=== PATIENT | male | born 1950 | race Caucasian/White ===

== ENCOUNTER 2016-08-08 18:52 | Emergency (ER) | payer OTHER ==
[2016-08-08 19:08] VITALS: TEMP 98.4
--- NOTE | 2016-08-08 19:23 | CPEKG ---
Heart Rate: 77 RR Interval: 779 P-R Interval: 188 QRSD Interval: 86 QT Interval: 384 QTC Interval: 435 P [place]: 82 QRS [place]: 79 T Wave [place]: 59 EKG Severity - NORMAL ECG - EKG Impression: SINUS RHYTHM Electronically Signed By: Estefani Andrade 09-Aug-2016 09:35:16
--- NOTE | 2016-08-08 19:29 | EDPHY ---
H & P Stated Complaint: Fainted earlier today HPI/ROS: CHIEF COMPLAINT: Syncope. HISTORY OF PRESENT ILLNESS: The patient is a 66-year-old male with a history of multiple syncopal episodes who presents after a syncopal episode just after lunch today. He was out shopping, ran a short distance, then suddenly felt short of breath and flushed and had a 20 second syncopal episode, striking the back of his head on a bike rack. He felt fine after waking up and had no complaints the rest of the day besides head pain. He denies numbness, weakness, speech difficulty, dizziness, confusion, or other complaints. He is currently receiving radiation for a prostate cancer and reports that he has more severe and longer-lasting episodes of hot flashes than before. His father at 59 of diabetes complications but he otherwise has no relevant family history. REVIEW OF SYSTEMS: A ten point review of systems was performed and is negative with the exception of the items mentioned in the HPI. Source: Patient Exam Limitations: No limitations - Personal History Current Tetanus/Diphtheria Vaccine: Yes Current Tetanus Diphtheria and Acellular Pertussis (TDAP): Yes - Medical/Surgical History Hx Asthma: No Hx Chronic Respiratory Disease: No Hx Diabetes: No Hx Cardiac Disease: No Hx Renal Disease: No Hx Cirrhosis: No Hx Alcoholism: No Hx HIV/AIDS: No Hx Splenectomy or Spleen Trauma: No Other PMH: Prostate cancer. 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 - Physical Exam Exam: General Appearance: Alert. Vital signs reviewed. BP 142/80 at triage. Head: Scalp abrasion just superior to occiput. No swelling, no bony deformity. Eyes: Pupils equal and round, no conjunctival injection, no discharge. Anicteric. ENT, Mouth: Mucous membranes are moist, no oropharyngeal erythema or edema. No hemotympanum on the left. Right ear occluded by cerumen. No oral trauma. Neck: No lymphadenopathy, supple. Respiratory: Lungs are clear to auscultation; no wheezes, rales, or rhonchi. Cardiovascular: Regular rate and rhythm; no murmur, rub, or gallop. Gastrointestinal: Abdomen is soft and nontender, no masses or organomegaly, bowel sounds normal. Skin: Warm and dry, no rashes on exposed skin, normal color. Back: Nontender to palpation over the thoracolumbar spine. No CVAT. Extremities: No lower extremity edema, no calf tenderness or swelling. Neurological: Alert and oriented. Moving all four extremities easily and equally. Cranial nerves II through XII are examined and are intact (visual acuity not tested). Strength is 5 over 5 bilaterally with testing of all major motor groups. Sensation is intact to light touch over all 4 extremities. Deep tendon reflexes are 2+ in the biceps and knees bilaterally. [id number] is performed accurately. Psychiatric: Normal affect. Constitutional: Initial Vital Signs Temperature (C) 36.9 C 08/08/16 19:06 Heart Rate 78 08/08/16 19:06 Respiratory Rate 16 08/08/16 19:06 Blood Pressure 142/80 H 08/08/16 19:06 O2 Sat (%) 94 08/08/16 19:06 O2 Delivery Mode Room Air Allergies/Adverse Reactions: No Known Allergies Allergy (Unverified 08/08/16 19:06) Medical Decision Making - Diagnostics EKG Interpretation: The 12 lead EKG was interpreted by myself. See hard copy and/or "tracemaster" electronic copy for interpretation. Sinus rhythm rate 77. Imaging: Study: CTA of the chest. Indication: Elevated d-dimer. Results: 1. There is no CT evidence of pulmonary artery thromboemboli. 2. Mild posterior dependent subsegmental atelectasis. The study was read by the radiologist Dr. Rand. I viewed the images myself on the PACS system. ED Course/Re-evaluation: Brief syncopal episode with scalp abrasion, normal neuro exam, no headache ( pain at site of abrasion only). He is not on blood thinners. This syncopal episode occurred five hours ago. I do not think that head imaging is warranted. An IV was established and labs ordered. EKG obtained. D-dimer elevated at 1.15. 2051: Reassessed patient and discussed lab work. I recommended CTA of the chest because of elevated d-dimer in setting of syncope and the patient is comfortable with this plan. 2144: CTA results reported to me negative by Dr. Rand, radiology. Patient remains pain free, no chest pain, neuro exam normal. He is offered hospitalization for cardiac monitoring and evaluation but declines. He understands that the etiology of his syncopal episode has not been determined. He has had previous syncopal episodes in his life--at least three other episodes. I suspect vasovagal syncope. He does not appear dehydrated and has not had vomiting/diarrhea/blood in stools. No apparent cardiac arrhythmia during stay in ED. Differential Diagnosis: I considred a ddx of syncope that includes but is not limited to volume depletion (including blood loss), arrhythmia, PE, and vasovagal. - Data Points Laboratory Results: Laboratory Results 08/08/16 19:39 08/08/16 19:39 Departure - Departure Disposition: Home, Routine, Self-Care Clinical Impression: Syncope Qualifiers: Syncope type: unspecified Qualified Code(s): R55 - Syncope and collapse Condition: Good Instructions: Syncope (ED), Head Injury (ED) Additional Instructions: Follow up with your primary care provider next week for reevaluation if needed. Return to the emergency department for any serious worsening of condition. Referrals: KARLOS FISCHER [Primary Care Provider] - As per Instructions Report Scribed for: Estefani Andrade Report Scribed by: Bhupinder Reyes Date of Report: 08/08/16 Time of Report: 19:43 Physician Review and Approval Statement: 08/08/16 19:29 Portions of this note were transcribed by the certified medical records coder. I, Dr. Estefani Andrade, personally performed the history, physical exam, and medical decision- making; and confirmed the accuracy of the information in the transcribed note.
[2016-08-08 19:46] LABS: % IMMATURE GRANULYOCYTES 0.2 % (0.0-1.1); ABSOLUTE IMMATURE GRANULOCYTES 0.01 10^3/uL (0.00-0.10); ADD DIFF? NO; ADD MORPH? NO; ADD SCAN? NO; ATYPICAL LYMPHOCYTE FLAG 0 (0-99); FRAGMENT RBC FLAG 0 (0-99); HEMATOCRIT 33.4 % (40.0-51.0); LEFT SHIFT FLG 0 (0-99); LIPEMIA HEMOLYSIS FLAG 90 (0-99); MEAN CELL HEMOGLOBIN 32.3 pg (27.9-34.1); MEAN CELL HEMOGLOBIN CONCENTR. 35.9 g/dL (32.4-36.7); MEAN PLATELET VOLUME 10.3 fL (8.7-11.7); PLATELET CLUMPS FLAG 0 (0-99); PLATELET COUNT 114 10^3/uL (150-400); RED BLOOD CELL COUNT 3.71 10^6/uL (4.40-6.38); RED CELL DISTRIBUTION WIDTH 13.2 % (11.5-15.2)
[2016-08-08 20:21] LABS: ANION GAP 9 mEq/L (8-16); CALCIUM 11.2 mg/dL (8.5-10.4); CARBON DIOXIDE 21 mEq/l (22-31); CHLORIDE 106 mEq/L (97-110); CREATININE 1.3 mg/dL (0.7-1.3); GLOMERULAR FILTRATION RATE 55; GLUCOSE 99 mg/dL (70-100); POTASSIUM 4.5 mEq/L (3.5-5.2); SODIUM 136 mEq/L (134-144)
[2016-08-08 20:32] LABS: TROPONIN I 0.021 ng/mL (0-0.034)
[2016-08-08] MEDS ORDERED: IOPAMIDOL (ISOVUE-300) 100 ML BTL IV ONE (20:58)
[2016-08-08 22:37] VITALS: BP 125/74; PULSE 78; RESP 16; O2SAT 95
== END 2016-08-08 22:38 | disposition home or self-care (01) ==
DX: R55 Syncope and collapse (principal); Z85.46 Personal history of malignant neoplasm of prostate
CPT/HCPCS: 71275; 93005; 99285; Q9967

== ENCOUNTER → 2016-09-01 | Outpatient (CLI) | payer OTHER | LOC: BHFA 08:30 | PROVIDERS: ATTEND Internal Medicine Interventional Cardiology | DX: R55 Syncope and collapse (principal) ==

== ENCOUNTER 2018-01-20 11:13 | Emergency (ER) | payer OTHER ==
--- NOTE | 2018-01-20 13:01 | EDPHY ---
H & P Time Seen by Provider: 01/20/18 12:15 HPI/ROS: CHIEF COMPLAINT: Hemorrhoids HISTORY OF PRESENT ILLNESS: 67-year-old male presents to the emergency department with rectal pain and hemorrhoids. He went to urgent care today was sent into the emergency department for evaluation. He has not had hemorrhoids since he was much younger. He had recent vein stripping procedure on his legs although he does not report that any of this extended up into the rectum. He had scheduled follow-up appointment with his surgeon but decided to come to the emergency department for evaluation. ROS: No fevers or chills. Denies abdominal pain. Denies any blood loss. Past Medical/Surgical History: Prostate cancer treated with radiation Social History: Smoking Status: Never smoked Physical Exam: On examination the patient had evidence of external thrombosed hemorrhoid. Very tender to palpate. There is no surrounding redness or signs of infection. Not actively bleeding. Exam was performed with nurse, Myron, at bedside. Constitutional: Initial Vital Signs Temperature (C) 36.4 C 01/20/18 11:23 Heart Rate 76 01/20/18 11:23 Respiratory Rate 18 01/20/18 11:23 Blood Pressure 125/75 H 01/20/18 11:23 O2 Sat (%) 98 01/20/18 11:23 O2 Delivery Mode Room Air Allergies/Adverse Reactions: Penicillins Allergy (Verified 01/20/18 11:22) Home Medications: Medication Instructions Recorded Allopurinol 01/20/18 Levothyroxine 01/20/18 Oxycodone HCl 01/20/18 Tamsulosin HCl [Flomax] 0.4 mg PO DAILY #10 cap 01/20/18 MDM/Departure - [facility] Procedures: Procedure: Thrombosed hemorrhoid The patient's thrombosed hemorrhoid was noted I rectal opening. Risks, benefits , alternatives discussed with the patient and consent obtained. The thrombosed hemorrhoid was incised with a #11 blade and clotted blood was expressed. The patient tolerated the procedure well. The procedure was performed by myself. ED Course/Re-evaluation: I spoke with the patient's general surgeon, Dr. Shaji Loco, who agreed with incision and drainage of the thrombosed hemorrhoids. The patient tolerated this quite well, see procedure note. Dr. Loco did not recommend antibiotics. I did encourage the patient to continue Sitz baths and to follow up with Dr. Loco if symptoms do not improve over the next 48 hr or return sooner if he feels worse in any way. - Depart Disposition: Home, Routine, Self-Care Clinical Impression: External thrombosed hemorrhoids Condition: Good Instructions: Hemorrhoids (ED), Thrombosed Hemorrhoid (ED) Additional Instructions: Soak in warm bath 15-20 minutes at every 2-3 hours especially today and tomorrow. Apply bacitracin ointment as discussed after each soaking. Ibuprofen 600 mg every 8 hr as needed for pain. Stool softener such as Dulcolax, [id number]. Your Flomax has been refilled per your request. Return to the emergency department if you developed increased pain, fever, purulent drainage, or if you feel worse in any way. Prescriptions: Tamsulosin HCl [Flomax] 0.4 mg PO DAILY #10 cap Referrals: KARLOS FISCHER [Primary Care Provider] - As per Instructions Shaji Loco MD [Medical Doctor] - 2-3 days, if not improved
[2018-01-20 13:22] VITALS: BP 107/76
== END 2018-01-20 13:20 | disposition home or self-care (01) ==
PROC: 069Y0ZZ Drainage of Lower Vein, Open Approach (ICD-10-PCS; principal; 2018-01-20)
DX: K64.5 Perianal venous thrombosis (principal); Z92.3 Personal history of irradiation; Z85.46 Personal history of malignant neoplasm of prostate

== ENCOUNTER 2018-01-23 13:58 | Emergency (ER) | payer OTHER ==
--- NOTE | 2018-01-23 14:06 | EDPHY ---
H & P Time Seen by Provider: 01/23/18 14:06 HPI/ROS: CHIEF COMPLAINT: Urinary retention HISTORY OF PRESENT ILLNESS: The patient has a history of prostate cancer and is status post recent excision of a thrombosed external hemorrhoid. He presents to the ED today with urinary retention. The patient had been taking oxycodone at home. The patient had been given a refill of Flomax which he did not start taking. He has been struggling with pain management constipation since his hemorrhoid surgery. His prostate cancer was treated with radiotherapy. The patient denies any fever, flank pain, vomiting or chills. The patient reports he has been unable to urinate for the past several hours. REVIEW OF SYSTEMS: A comprehensive 10 point review of systems is otherwise negative aside from elements mentioned in the history of present illness. Source: Patient Exam Limitations: No limitations - Medical/Surgical History Hx Asthma: No Hx Chronic Respiratory Disease: No Hx Diabetes: No Hx Cardiac Disease: No Hx Renal Disease: No Hx Cirrhosis: No Hx Alcoholism: No Hx HIV/AIDS: No Hx Splenectomy or Spleen Trauma: No Other PMH: Prostate cancer./VEIN STRIPPING - Social History Smoking Status: Never smoked - Physical Exam Exam: General Appearance: Alert, no distress Eyes: Pupils equal and round no pallor or injection ENT, Mouth: Mucous membranes moist Respiratory: There are no retractions, lungs are clear to auscultation Cardiovascular: Regular rate and rhythm Gastrointestinal: Suprapubic tenderness to palpation Neurological: 5/5 strength all 4 extremities Skin: Warm and dry, no rashes Musculoskeletal: Neck is supple nontender Extremities: symmetrical, full range of motion Constitutional: Initial Vital Signs Temperature (C) 36.9 C 01/23/18 14:11 Heart Rate 69 01/23/18 14:11 Respiratory Rate 16 01/23/18 14:11 Blood Pressure 148/88 H 01/23/18 14:11 O2 Sat (%) 99 01/23/18 14:11 O2 Delivery Mode Room Air Allergies/Adverse Reactions: Penicillins Allergy (Verified 01/23/18 14:11) Home Medications: Medication Instructions Recorded Allopurinol 01/20/18 Levothyroxine 01/20/18 Oxycodone HCl 01/20/18 Tamsulosin HCl [Flomax] 0.4 mg PO DAILY #10 cap 01/20/18 Medical Decision Making ED Course/Re-evaluation: Patient presents the ED with acute urinary retention. The patient's bladder volume is 650 mL and he is unable to void. A Frank catheter was ordered for the patient at 2:20 p.m.. The patient was re-evaluated at 3:00 p.m.. He will be discharged home with a leg bag. He is advised to follow up with his urologist or primary care provider for a voiding trial. Differential Diagnosis: Differential diagnosis considered includes urinary retention, constipation - Data Points Medications Given: Discontinued Medications Lidocaine (Uroject Lidocaine 2% Jelly) 20 ml UR EDNOW ONE Stop: 01/23/18 14:23 Last Admin: 01/23/18 14:22 Dose: 20 ml Departure - Departure Disposition: Home, Routine, Self-Care Clinical Impression: Urinary retention, Constipation Condition: Good Instructions: Urinary Retention in Men (ED) Additional Instructions: 1. Please schedule a follow-up appointment with your urologist or primary care provider to discuss removal of the Frank catheter. 2. I recommend milk of magnesia for treatment of your constipation. Try and avoid narcotic medications. I recommend starting Flomax. 3. Dulcolax as needed for ongoing constipation. 4. Return to the ED for worsening pain, fever, vomiting or other concerns. Referrals: KARLOS FISCHER [Medical Doctor] - As per Instructions
[2018-01-23] MEDS ORDERED: LIDOCAINE 2% JELLY 20 ML (UROJECT) ONE (14:18)
[2018-01-23] MEDS ORDERED: LIDOCAINE 2% JELLY 20 ML (UROJECT) UR ONE (14:22)
[2018-01-23 15:35] VITALS: BP 146/79
== END 2018-01-23 15:36 | disposition home or self-care (01) ==
DX: R33.9 Retention of urine, unspecified (principal); K59.00 Constipation, unspecified; Z85.46 Personal history of malignant neoplasm of prostate

== ENCOUNTER 2018-01-25 09:22 | Inpatient (IN) | payer OTHER ==
--- NOTE | 2018-01-25 09:39 | EDPHY ---
HPI/HX/ROS/PE/MDM Narrative: CHIEF COMPLAINT: Abdominal pain, left flank pain, and difficulty voiding urine HISTORY OF PRESENT ILLNESS: The patient is a 67 y/o male arriving with his at the referral of his PCP complaining of abdominal pain, left flank pain, and difficulty voiding urine onset this morning. This is his 3rd ED visit in 4 days. At his first visit he had hemorrhoids lanced and is still having symptoms related to that. On Thursday, 2 days ago, he couldn't urinate and was evaluated in the ED where he had a catheter placed. He has noticed blood in his Frank bag since then, but reports it has been draining normally. He is not taking the Flomax he was prescribed at his most recent visit. This morning he woke around 04:00 and had a normal bowel movement. Since then, he has not passed any urine and has developed significant lower abdominal pain and left flank pain reminiscent of a prior kidney stone 15 years ago. No fever, chills, chest pain, shortness of breath, palpitations, vomiting, diarrhea, headache, lightheadedness. No cardiac or respiratory disease history, no abdominal surgical history. REVIEW OF SYSTEMS: Aside from elements discussed in the HPI, a comprehensive 10-point review of systems was reviewed and is negative. PAST MEDICAL HISTORY: 1. Radiation treatment to prostate 2. Kidney stone 15 years ago 3. Gout - allopurinol 4. Hypothyroidism - thyroxine. SOCIAL HISTORY: at bedside. Lives in [place]. Retired. VITAL SIGNS: Reviewed by me GENERAL: Well-developed, well-nourished, appears uncomfortable, in no respiratory distress. HEENT: Atraumatic. Eyes: No icterus, no injection. Mouth: moist mucous membranes. No erythema or lesions. Neck: supple with no adenopathy. LUNGS: Clear to auscultation bilaterally, no wheezes, rhonchi or rales. CARDIAC: Regular rate and rhythm, no rubs, murmurs or gallops. ABDOMEN: Soft, tenderness across lower abdomen, mildly distended bladder with suprapubic tenderness, bowel sounds normal, Frank catheter with empty leg bag. BACK: Left CVA tenderness. EXTREMITIES: No trauma. No edema. Range of motion is normal throughout. NEURO: Alert and oriented, grossly nonfocal. SKIN: Warm and dry, no rash. PSYCHIATRIC: Normal mentation, no agitation. Portions of this note were transcribed by a director biomedical engineering. I personally performed a history, physical exam, medical decision making, and confirmed accuracy of information the transcribed note. ED Course: This is a 67 y/o male who returns to the ED for the second time in 48 hours with inability to void urine this morning. He had a Frank placed 2 days ago for the same symptoms and has noted blood in his urine since then. He has significant lower abdomen tenderness, bladder fullness, and left CVA tenderness on exam. Plan for IV, labs, UA, bladder scan, and Frank flush. Symptom management as needed. 1L IV NS ordered. 32cc urine on bladder scan. Calcium 12.5. Acute renal insufficiency with creatinine of 1.8. CT shows 3mm distal left ureteral stone. Given patient's elevated calcium, elevated creatinine, presence of a kidney stone, as well as a significantly elevated parathyroid hormone level, patient was admitted to the hospital for IV hydration, and further evaluation. Spoke with hospitalist service. Dr. Springer accepts admission. MDM: Differential diagnosis of the patient's flank pain was considered including but not limited to musculoskeletal causes, kidney stone, pyelonephritis, shingles, and intra-abdominal causes such as diverticulitis and appendicitis. - Data Points Imaging Results: CT Abd Pelvis Impression: 1. 3 mm stone at the left ureterovesical junction with mild obstructive uropathy , with perinephric and perienteric stranding suggesting forniceal rupture. 2. Bilateral nephrolithiasis. 3. Additional findings as above. Findings discussed with Elsy crowell for Caity Forman MD 01/25/2018 at 10: 41. Attention: This CT examination is specifically designed to evaluate patients who are clinically suspected of having acute obstructive uropathy. This examination does not use radiographic contrast and provides only a limited evaluation of the abdomen, pelvis and retroperitoneum. If there is further clinical suspicion for pathological conditions other than obstructive uropathy, a complete CT evaluation of the abdomen and pelvis utilizing intravenous and enteric contrast should be considered. Dictated By: Robin Marcano MD Imaging: Discussed imaging studies w/ call center receptionist Radiologist Laboratory Results: Laboratory Results 01/25/18 09:35 01/25/18 09:35 Medications Given: Discontinued Medications Acetaminophen (Tylenol) 650 mg PO Q4HRS PRN PRN Reason: Pain, Mild/Fever, Can Take PO Stop: 07/24/18 13:50 Last Admin: 01/26/18 20:01 Dose: 325 mg Cyclobenzaprine HCl (Flexeril) 10 mg PO EDNOW ONE Stop: 01/25/18 10:47 Last Admin: 01/25/18 10:52 Dose: 10 mg Hydromorphone HCl (Dilaudid) 0.5 mg IVP EDNOW ONE Stop: 01/25/18 10:07 Last Admin: 01/25/18 10:14 Dose: 0.5 mg Sodium Chloride (Ns) 1,000 mls @ 0 mls/hr IV ONCE ONE; Wide Open PRN Reason: Protocol Stop: 01/25/18 09:42 Last Admin: 01/25/18 09:48 Dose: 1,000 mls Sodium Chloride (Ns) 1,000 mls @ 100 mls/hr IV CONT MARK Stop: 07/24/18 13:59 Last Admin: 01/27/18 06:38 Dose: 1,000 mls Zoledronic Acid 4 mg/ Dextrose 105 mls @ 210 mls/hr IV ONCE ONE Stop: 01/25/18 15:14 Last Admin: 01/25/18 15:03 Dose: 105 mls Ketorolac Tromethamine (Toradol) 15 mg IVP Q6HRS [facility] Stop: 01/30/18 17:59 Last Admin: 01/26/18 13:42 Dose: Not Given Levothyroxine Sodium (Synthroid) 25 mcg PO DAILY06 [facility] Stop: 07/25/18 05:59 Last Admin: 01/27/18 06:38 Dose: 25 mcg Ondansetron HCl (Zofran) 4 mg IVP EDNOW ONE Stop: 01/25/18 10:08 Last Admin: 01/25/18 10:14 Dose: 4 mg Polyethylene Glycol (Miralax) 17 gm PO DAILY MARK Stop: 07/24/18 13:59 Last Admin: 01/27/18 09:32 Dose: Not Given Tamsulosin HCl (Flomax) 0.4 mg PO EDNOW ONE Stop: 01/25/18 10:46 Last Admin: 01/25/18 10:52 Dose: 0.4 mg Tamsulosin HCl (Flomax) 0.4 mg PO DAILY MARK Stop: 07/25/18 08:59 Last Admin: 01/27/18 09:33 Dose: Not Given General Time Seen by Provider: 01/25/18 09:31 Initial Vital Signs: Initial Vital Signs Temperature (C) 36.3 C 01/25/18 09:26 Heart Rate 58 L 01/25/18 09:26 Respiratory Rate 19 01/25/18 09:26 Blood Pressure 158/83 H 01/25/18 09:26 O2 Sat (%) 100 01/25/18 09:26 O2 Delivery Mode Room Air Allergies/Adverse Reactions: Penicillins Allergy (Verified 01/25/18 11:45) Other-Enter Comments Home Medications: Medication Instructions Recorded Allopurinol [Allopurinol 300 MG 300 mg PO DAILY 01/20/18 (RX)] Levothyroxine [Synthroid 25 mcg 25 mcg PO DAILY06 01/20/18 (*)] Acetaminophen [Tylenol 325mg (*)] 325 mg PO Q6HRS PRN 01/25/18 Herbals/Supplements -Info Only 1 ea PO DAILY 01/25/18 Magnesium Oxide [Magnesium Oxide 400 mg PO DAILY 01/25/18 400 mg (*)] Multivitamins [Multivitamin (*)] 1 each PO DAILY 01/25/18 Tamsulosin HCl [Flomax 0.4 MG (*)] 0.4 mg PO DAILY #30 cap 01/27/18 Departure - Departure Disposition: [facility] Clinical Impression: Hypercalcemia, Renal insufficiency, Ureteral stone Condition: Fair Report Scribed for: Caity Forman Report Scribed by: Elsy Colbert Date of Report: 01/25/18 Time of Report: 09:44
[2018-01-25] MEDS ORDERED: NS 1,000 ML IV ONE (09:41)
[2018-01-25 09:52] LABS: PLATELET COUNT 167 10^3/uL (150-400)
[2018-01-25] MEDS ORDERED: HYDROmorphONE/DILAUDID 2 MG/ML INJ IVP ONE (10:06)
[2018-01-25] MEDS ORDERED: ONDANSETRON 4 MG/2 ML VIAL IVP ONE (10:07)
[2018-01-25] MEDS ORDERED: TAMSULOSIN HCL 0.4 MG CAP PO ONE (10:45)
[2018-01-25] MEDS ORDERED: CYCLOBENZAPRINE 10 MG TAB PO ONE (10:46)
[2018-01-25] MEDS ORDERED: ACETAMINOPHEN 325 MG TAB PO PRN ×2 (13:09→13:51)
[2018-01-25] MEDS ORDERED: ONDANSETRON DISINTEGRATING 4 MG TAB PO PRN (13:51)
[2018-01-25] MEDS ORDERED: ONDANSETRON 4 MG/2 ML VIAL IVP PRN (13:51)
[2018-01-25] MEDS ORDERED: ZOLEDRONIC ACID 4 MG in D5W 100 ML IV ONE ×2 (13:53→14:45)
--- NOTE | 2018-01-25 14:36 | GHP ---
[f rep st] HISTORY AND PHYSICAL DATE OF ADMISSION: 01/25/2018 The patient is a pleasant 67-year-old gentleman with a couple of recent ER visits who presented for c onstipation and thrombosed hemorrhoid which was lanced. At that time, he also had urinary retention, and he had a catheter placed. He was prescribed Flomax, but has not started taking it. He also too k a couple doses of oxycodone for his hemorrhoid management. This morning he woke up with left flank plain that was similar to a kidney stone in the place prior. He had ongoing pain so he sought care. He notes longstanding history of hypercalcemia which has not been evaluated. It sounds like his [facility] physician, Dr. Montejo, had urged him to do so. No fever, chills, cough, shortness of breath. REVIEW OF SYSTEMS: Complete 10-point review of systems conducted negative except as noted in the HPI . PAST MEDICAL HISTORY: Prostate cancer status post radiation finished in 2017, nephrolithiasis, hyper calcemia, gout taking allopurinol, hypothyroidism. SOCIAL HISTORY: No alcohol. No tobacco. Lives in [place]. Retired in [employer]. FAMILY HISTORY: It sounds like his father had some kidney trouble. PHYSICAL EXAMINATION: VITAL SIGNS: Temp 36.6, blood pressure 146/70, pulse 50, breathing 16 times a minute, 100% on 2 L. GENERAL: In no acute distress. HEENT: Sclerae anicteric. Oropharynx clear. Mucous membranes moist. NECK: Supple. No lymphadenopathy or JVD. LUNGS: Clear to auscultation bilaterally. HEART: S1, S2. ABDOMEN: Soft, nontender, nondistended. LOWER EXTREMITIES: No edema . Calves nontender. SKIN: Without rash. NEUROLOGIC: Exam is nonfocal. LABS: White count 9.6, hematocrit 45, platelets are 167,000. Sodium 138, potassium 4.1, chloride 10 4, bicarb 20, BUN 27, creatinine 1.8 baseline is less than 1, glucose 121, calcium is 12.5, ionized c alcium is elevated at 1.47. Phos is low at 1.5. PTH is elevated at 235. Review of his calciums over time suggested that it has been high since at least 2010, although this i s the highest value we have seen. CT of the abdomen and pelvis shows obstructing nephrolithiasis wit h a 3 mm stone in the left UVJ with mild obstructive uropathy. There is bilateral nephrolithiasis no deejay. The largest on the right is 4. The largest left is 2 mm. I discussed the case Dr. Caity morales. ASSESSMENT AND PLAN: A 67-year-old gentleman with nephrolithiasis, Frank, hypercalcemia. 1. 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 Needs surgical manage ment of this. He is given a dose of Zometa now. 2. Hypercalcemia with volume depletion: Intravenous fluids. Tomorrow we may give him a dose of [place], when his creatinine has improved. 3. Symptomatic nephrolithiasis: Patient is not especially uncomfortable. We will strain his urine and provide him with Flomax. 4. Urinary retention: I suspect this is secondary to narcotics, although I do acknowledge he receiv ed a relatively low dose. He does not have a history of benign prostatic hypertrophy symptoms and jamari mcgill has never struggled with urinary retention. We will continue Flomax. Will have an attempt at F oley removal today. 5. Constipation: Flomax. 6. Thrombosed hemorrhoid: I suspect this is secondary to constipation. DISPOSITION: Observation status. /[id number]/MODL
[2018-01-25] MEDS: POLYETHYLENE GLYCOL 3350 17 GM PKT PO SCH (15:17)
[2018-01-25] MEDS: NS 1,000 ML IV SCH (15:18)
[2018-01-25] MEDS: KETOROLAC 15 MG/1 ML SDV IVP SCH ×2 (18:04→23:37)
[2018-01-26] MEDS: NS 1,000 ML IV SCH ×3 (01:49→20:00)
[2018-01-26] MEDS: KETOROLAC 15 MG/1 ML SDV IVP SCH ×2 (05:57→13:42)
[2018-01-26] MEDS: LEVOTHYROXINE 25 MCG TAB PO SCH (05:57)
[2018-01-26] MEDS: TAMSULOSIN HCL 0.4 MG CAP PO SCH (08:57)
[2018-01-26] MEDS ORDERED: Herbals/Supplements -Info Only PO SCH (09:00)
[2018-01-26] MEDS: POLYETHYLENE GLYCOL 3350 17 GM PKT PO SCH (09:05)
--- NOTE | 2018-01-26 09:37 | ASMTCMCOM ---
CM Note CM Note Notes: Pt's chart reviewed for D/C planning. Pt is a 67 y/o male who woke up yesterday morning with left flank pain that was similar to a kidney stone in the place prior. Pt notes a long standing issue with hypercalcemia which has not been evaluated, although his physician had urged him to do so. Within the last week he had 2 ED visits for constipation and a thrombosed hemorrhoid, which was lanced. At that time he had urinary retention, and he had a catheter placed. He was presecribed Flomax, but has not started taking it. He has a hx of prostate cancer with his last radiation treatment in 2017. In addition he has/had nephrolithasis, gout and hypothyroidism. Pt lives with his , Alba ([phone], ). Pt lived independently prior to hospitalization and no CM needs are anticipated. CM will follow for changes. D/C Plan: Anticipate independent. Date Signed: 01/26/2018 09:21 AM Electronically Signed By:Eliz Espinoza
--- NOTE | 2018-01-26 12:54 | HOSPPROG ---
Hospitalist Progress Note Assessment/Plan: 67 yo M w hyperparathyroidism, nephrolithiasis, javan hyperparathyroidism: needs parathyroidectomy outpt surgical eval calcium improved hypercalcemia: Ca improved w zoledronic acid nephrolithiasis: sx resolved, but no stone seen in straining follow continue flomax 3 mm stone should have passed on own JAVAN: surprising I believe he is euvolemic check ulytes renal u/s to eval for progressive obstruction neprhology to see urinary obstruction: resolved dispo: inpt Subjective: urinary sx improved. cr up to 2.2. case dw dr vasquez Objective: Vital Signs Temp Pulse Resp BP Pulse Ox 36.8 C 70 16 116/62 96 01/26/18 08:51 01/26/18 08:51 01/26/18 08:51 01/26/18 08:51 01/26/18 08:51 Laboratory Results 01/26/18 11:17 01/25/18 01/26/18 01/27/18 05:59 05:59 05:59 Intake Total 2538 Output Total 780 Balance 1758 - Physical Exam Constitutional: no apparent distress, appears nourished Eyes: PERRL, anicteric sclera Ears, Nose, Mouth, Throat: moist mucous membranes, hearing normal Cardiovascular: regular rate and rhythym, no murmur, rub, or gallop Respiratory: no respiratory distress, no rales or rhonchi Gastrointestinal: normoactive bowel sounds, soft, non-tender abdomen Genitourinary: no bladder fullness, No thomas in urethra Skin: warm, normal color Musculoskeletal: full muscle strength, no muscle tenderness Neurologic: AAOx3 Psychiatric: interacting appropriately ICD10 Worksheet Patient Problems: Problems Problem Status Onset Hypercalcemia Acute Renal insufficiency Acute Ureteral stone Acute Syncope Acute
--- NOTE | 2018-01-26 14:16 | PDMN ---
Medical Necessity Medical necessity: [facility] General Admission Criteria: 67 y/o w/ multi issues : hypercalcemia, hyperparathyroidism needing surgical management, currently on Zometa, volume depletion requiring IV fluids, symptomatic nephrolithiasis, urinary retention, termite helper thomas in place, constipation w/ thrombosed hemorrhoid. Elevated WBC noted, Hypertensive SBP 150s, Worsenting JAVAN, creat 1.8 to 2.2 overnight, cont IV fluids, renal u/s ordered, neph consult. Hx prostate ca, completed radiation tx in 2017. Cont to monitor, dx and treat for another MN.
--- NOTE | 2018-01-26 16:02 | GCON ---
[f rep st] CONSULTATION DATE OF CONSULTATION: 01/26/2018 REASON FOR CONSULTATION: Acute renal failure. HISTORY OF PRESENT ILLNESS: I have been asked to evaluate Mr. Tucker regarding his acute renal failure. He is a 67-year-old gentleman with history of prostate cancer, nephrolithiasis, and hypercalcemia. He presented to the emergency room yesterday with acute onset of left flank pain similar to previous episodes of nephrolithiasis. A noncontrast CT did demonstrate an obstructing left ureteral stone with mild-to -moderate left hydronephrosis. His baseline creatinine appears to be 1.3 to 1.5 , dating back to 2010. His creatinine was 1.8 yesterday. He did receive a few doses of Toradol for pain control. He now states that his pain has resolved, but it is unclear if this is due to passage of his stone or pain medications. He also has a history of mild hypercalcemia dating back to at least 2010 and his calcium was 12.5 on admission with a phosphorus of 1.5. PTH was found to be significantly elevated at 235 with an ionized calcium 1.47. He received a dose of Zometa for this. He has been receiving normal saline since admission and his urine output has been excellent. Today his creatinine increased to 2.2 and, therefore, I have been asked to evaluate him. His calcium has improved to 10.3 and his flank pain has essentially resolved. A repeat CT is planned to evaluate whether or not his stone has actually passed. He did have a Frank catheter in place on admission due to recent episode of urinary retention. This has been discontinued, but he denies any voiding issues. He has not had any episodes of hypotension and his Toradol has been discontinued. PAST MEDICAL HISTORY: 1. Nephrolithiasis with 2 prior episodes. 2. Longstanding hypercalcemia since at least 2010. 3. Prostate cancer status post external beam radiation in 2017. 4. Hypothyroidism. 5. Gout. ALLERGIES: Penicillin. CURRENT MEDICATIONS: He is receiving normal saline at 100 mL/hour. Other medications include Synthroid 25 mcg daily, Flomax 0.4 mg daily, Zofran, Tylenol , and MiraLAX as needed. SOCIAL HISTORY: He is originally from [place], but has lived in [place] for 22 years. He worked in [employer] in the past and currently works in the field of [employer]. He is a nonsmoker, nondrinker. FAMILY HISTORY: His father had nephrolithiasis. REVIEW OF SYSTEMS: Positive for flank pain, nausea, recent constipation, and pain from a thrombosed hemorrhoid. He denies any shortness of breath, chest pain, or fevers. He denies any difficulty voiding following discontinuation of his Frank catheter. Aside from other positives noted in the HPI, the remainder of a 10-organ system review is negative. PHYSICAL EXAM: GENERAL: Well appearing, in no acute distress. Blood pressure 116/62, heart rate 70, oxygenation 96% on room air. HEENT: Sclerae anicteric. Oral mucosa is moist, oropharynx is clear. NECK: Supple without JVD or lymphadenopathy. There are no carotid bruits. LUNGS: Completely clear to auscultation bilaterally. BACK: He does have mild left costovertebral angle tenderness. HEART: Regular rate and rhythm without murmurs, gallops, rubs. ABDOMEN: Soft, nontender with normoactive bowel sounds. There is no hepatosplenomegaly, masses, or bruits. There is no suprapubic tenderness. EXTREMITIES: There is no lower extremity edema. Posterior tibialis pulses are easily palpable bilaterally. SKIN: No skin rashes. NEURO: He is awake, alert , appropriate. There is no facial droop. : Frank catheter is absent. LABS: Sodium 139, potassium 4.3, chloride 107, CO2 of 23, BUN 27, creatinine 2.2, glucose 91, calcium 10.3. Urinalysis yesterday was positive for 3+ blood with 50-180 red blood cells per high-power field, protein was negative. White blood cell count is 9.6, hemoglobin 15.8, platelets 167. IMAGING: Noncontrast CT of the abdomen and pelvis yesterday demonstrated bilateral intrarenal calculi with an obstructing stone at the left ureterovesical junction with hydronephrosis and mild perinephric and periureteric stranding. IMPRESSION AND PLAN: 1. Acute renal failure: I strongly suspect this is due to a combination of unilateral obstruction along with the administration of Toradol, possibly confounded further by hypercalcemia on admission. In light of his rising creatinine, I do agree with repeat imaging to ensure that this hydronephrosis has resolved and his stone has passed. He received Zometa yesterday, this also can cause acute tubular necrosis. Nonetheless, I would expect his renal failure to improve shortly. For now, I would continue normal saline at current rate. I will not perform other diagnostic evaluation. His urinalysis was negative for protein, essentially excluding the diagnosis of glomerulonephritis. I would avoid additional doses of nonsteroidal antiinflammatories. I would also hold any further doses of bisphosphonates. 2. Hypercalcemia. This is almost certainly a primary hyperparathyroidism and appears quite chronic. I will check vitamin D levels for completeness, but I agree with surgical evaluation. I would defer to Surgery whether any parathyroid imaging is needed. 3. Nephrolithiasis: This is most likely calcium nephrolithiasis from his primary hyperparathyroidism and hypercalcemia, though theoretically he could have uric acid stones as well. Calcium stone should be adequately treated with parathyroidectomy. 4. Hypophosphatemia: This is due to primary hyperparathyroidism and should resolve with surgical therapy. Thank you for the consultation. We will follow with you. /[id number]/MODL MTDD
[2018-01-27] MEDS: LEVOTHYROXINE 25 MCG TAB PO SCH (06:38)
[2018-01-27] MEDS: NS 1,000 ML IV SCH (06:38)
[2018-01-27 08:50] VITALS: BP 116/57
[2018-01-27] MEDS: POLYETHYLENE GLYCOL 3350 17 GM PKT PO SCH (09:32)
[2018-01-27] MEDS: TAMSULOSIN HCL 0.4 MG CAP PO SCH (09:33)
[2018-01-27 09:47] LABS: PLATELET COUNT 106 10^3/uL (150-400)
--- NOTE | 2018-01-27 10:26 | HOSPPROG ---
Hospitalist Progress Note Assessment/Plan: 67 yo M w hyperparathyroidism, nephrolithiasis, javan hyperparathyroidism: needs parathyroidectomy outpt surgical eval calcium improved hypercalcemia: Ca improved w zoledronic acid nephrolithiasis: sx resolved, but no stone seen in straining follow continue flomax resolved JAVAN:improved obstruction+ toradol+CKD+mild hypovolemia urinary obstruction: resolved dispo: home today > 30 minutes on dc Subjective: anxious for dc. cr normalized Objective: Vital Signs Temp Pulse Resp BP Pulse Ox 36.7 C 79 16 116/57 L 96 01/27/18 08:48 01/27/18 08:48 01/27/18 08:48 01/27/18 08:48 01/27/18 08:48 Laboratory Results 01/27/18 09:11 01/27/18 09:11 01/26/18 01/27/18 01/28/18 05:59 05:59 05:59 Intake Total 2538 3648 Output Total 780 1950 Balance 1758 1698 - Physical Exam Constitutional: no apparent distress, appears nourished Eyes: PERRL, anicteric sclera Ears, Nose, Mouth, Throat: moist mucous membranes, hearing normal Cardiovascular: regular rate and rhythym, no murmur, rub, or gallop Respiratory: no respiratory distress, no rales or rhonchi Gastrointestinal: normoactive bowel sounds, soft, non-tender abdomen Genitourinary: no bladder fullness, No thomas in urethra Skin: warm, normal color Musculoskeletal: full muscle strength, no muscle tenderness Neurologic: AAOx3 ICD10 Worksheet Patient Problems: Problems Problem Status Onset Hypercalcemia Acute Renal insufficiency Acute Ureteral stone Acute Syncope Acute
--- NOTE | 2018-01-27 11:00 | GDS ---
[f rep st] DISCHARGE SUMMARY DISCHARGE DIAGNOSES: 1. Primary hyperparathyroidism. 2. Acute on chronic kidney disease. 3. Nephrolithiasis. 4. Urinary retention secondary to narcotics. HOSPITAL COURSE: Please see admission history and physical by Dr. Todd Springer. The patient prese nted with flank pain. CT showed a 3 mm stone with left-sided hydronephrosis. He was given Flomax, w hich he had been prescribed previously as an outpatient. The patient also came in with an indwelling Frank that had been placed at an ER visit a couple days earlier. Following a couple doses of narcot ics, the Frank was pulled without difficulty, with no problems with urination thereafter. The patient's creatinine was 1.8 on presentation; his baseline is about 1.5. It chai to 2.2. This i s in the setting of Toradol. He was seen by Nephrology. His tract was reimaged with no evidence of obstruction. In fact, he had passed the stone. Urine lytes were not consistent with volume deple tion, and it fell to 1.6 on the day of discharge. His calcium was 12.5 on admission. PTH is elevated at 235. This is consistent with a diagnosis of p rimary hyperparathyroidism. Review of his prior labs showed that his calcium has been elevated since 2010. He was given a dose of Zometa with a calcium that is 9.7 on discharge. He was seen by Dr. Baldo Mendes' PA, for the establishment of an outpatient parathyroidectomy. He was discharged h ome with a prescription for Flomax. /[id number]/MODL
== END 2018-01-27 11:17 | disposition home or self-care (01) | DRG 694 ==
LOC: F1N 11:10 → OBSVTOIN 11:41 → INTOOBSV 11:41
PROVIDERS: ADMIT Internal Medicine; ATTEND Internal Medicine
DX: N20.2 Calculus of kidney with calculus of ureter (principal); N13.8 Other obstructive and reflux uropathy; E83.52 Hypercalcemia; N17.9 Acute kidney failure, unspecified; M10.9 Gout, unspecified; N18.9 Chronic kidney disease, unspecified; K59.00 Constipation, unspecified; R33.0 Drug induced retention of urine; T40.605A Adverse effect of unspecified narcotics, initial encounter; E03.9 Hypothyroidism, unspecified; Z92.3 Personal history of irradiation; Z85.46 Personal history of malignant neoplasm of prostate
CPT/HCPCS: 96374; J1170; J1885; J2405; J3489

== ENCOUNTER → 2018-06-23 | Outpatient (CLI) | payer OTHER | LOC: FIMAGING 09:22 | PROVIDERS: ATTEND Internal Medicine Endocrinology, Diabetes & Metabolism | DX: Z13.820 Encounter for screening for osteoporosis (principal); M85.89 Other specified disorders of bone density and structure, multiple sites; E04.2 Nontoxic multinodular goiter; E21.3 Hyperparathyroidism, unspecified; C08.0 Malignant neoplasm of submandibular gland; Z85.46 Personal history of malignant neoplasm of prostate ==

== ENCOUNTER → 2018-06-24 | Outpatient (CLI) | payer OTHER | LOC: FIMAGING 10:37 | PROVIDERS: ATTEND Internal Medicine Endocrinology, Diabetes & Metabolism | DX: D35.1 Benign neoplasm of parathyroid gland (principal); E21.3 Hyperparathyroidism, unspecified | CPT/HCPCS: 78070; A9500 ==

== ENCOUNTER → 2018-07-21 | Outpatient (CLI) | payer OTHER ==
[~2018-07-21] MED LIST: IOPAMIDOL (ISOVUE-300) 100 ML BTL ONE
== END ==
LOC: FIMAGING 10:22
PROVIDERS: ATTEND Otolaryngology
DX: K11.8 Other diseases of salivary glands (principal); R22.9 Localized swelling, mass and lump, unspecified; M47.892 Other spondylosis, cervical region
CPT/HCPCS: 70491; Q9967; 82565-PO

== ENCOUNTER → 2018-08-10 | Outpatient (CLI) | payer OTHER ==
[~2018-08-10] MED LIST changes: +GADOBUTROL 10 ML VIAL IVP ONE; -IOPAMIDOL (ISOVUE-300) 100 ML BTL ONE; +LIDOCAINE 1% 300 MG/30 ML SDV ONE
== END ==
LOC: FIMAGING 10:11
PROVIDERS: ATTEND Otolaryngology
DX: K11.8 Other diseases of salivary glands (principal); D35.1 Benign neoplasm of parathyroid gland; E21.3 Hyperparathyroidism, unspecified
CPT/HCPCS: 70543; A9585; 82565-PO

== ENCOUNTER → 2018-08-11 | Outpatient (CLI) | payer OTHER | LOC: FIMAGING 17:37 | PROVIDERS: ATTEND Otolaryngology | PROC: 0G9K3ZX Drainage of Thyroid Gland, Percutaneous Approach, Diagnostic (ICD-10-PCS; principal; 2018-08-11) | DX: R22.0 Localized swelling, mass and lump, head (principal) ==

== ENCOUNTER 2018-09-20 08:26 | Day surgery (SDC) | payer OTHER ==
[2018-09-20] MEDS ORDERED: NS 1,000 ML IV ONE (08:41)
[2018-09-20] MEDS ORDERED: CLINDAMYCIN 900 MG/DEXTROSE 50 ML IV ONE (09:10)
[2018-09-20 09:13] VITALS: BP 128/80
[2018-09-20] MEDS ORDERED: LIDO/EPI 1% **Not for Epidural 20 ML MDV ONE (09:55)
--- NOTE | 2018-09-20 10:12 | SOAPPROG ---
SOAP Progress Note Assessment/Plan: Assessment: Pt with hyperparathyroidism and R submax mass. 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 A referral was sent for him to see Dr. Damon. He never saw him. I spoke with Dr. Damon today after reviewing the MRI. He feels there is sig risk for a possible spinal injury, that he should see him prior. I d/w the pt that if he needs to see DR. Damon prior to surgery. He is frustrated as he feels this should have been set up for him. He denies any sxs. we discussed it for a long time and both agree that we aren't willing to take this risk without eval and possible tx by neuro first. Unfortunately his PHPT causes osteopenia which inc his risk as well. Will call DR. Damon to see if he can get him in this week to discuss. He agrees Plan: 09/20/18 10:09 Subjective: Pt here for surgery. Never saw NSGY. Objective: Vital Signs Temp Pulse Resp BP Pulse Ox 36.5 C 53 L 11 L 128/80 H 100 09/20/18 08:53 09/20/18 08:53 09/20/18 08:53 09/20/18 08:53 09/20/18 08:53 ICD10 Worksheet Patient Problems: Problems Problem Status Onset Hypercalcemia Acute Renal insufficiency Acute Syncope Acute Ureteral stone Acute
== END 2018-09-20 12:00 | disposition home or self-care (01) ==
LOC: F3N 08:26 → UNDOADMOB 08:26 → FSGY 08:26 → EDSTATUS 10:15 → FSGY 12:00
PROVIDERS: ATTEND Otolaryngology
DX: K11.8 Other diseases of salivary glands (principal); E21.3 Hyperparathyroidism, unspecified; Z53.09 Procedure and treatment not carried out because of other contraindication

== ENCOUNTER 2018-10-08 06:15 | Inpatient (IN) | payer OTHER ==
[2018-10-08] MEDS ORDERED: GABAPENTIN 300 MG CAP PO ONE (06:26)
[2018-10-08] MEDS ORDERED: ceFAZolin 2 GM/DEXTROSE 100 ML IV ONE (06:26)
[2018-10-08] MEDS ORDERED: ACETAMINOPHEN 500 MG TAB PO ONE (06:26)
[2018-10-08] MEDS ORDERED: LR 1,000 ML IV ONE (06:28)
--- NOTE | 2018-10-08 06:58 | PDANEPAE ---
ANE History of Present Illness For lami and parathyroid resection ANE Past Medical History - Cardiovascular History Hx Hypertension: No Hx Arrhythmias: No Hx Chest Pain: No Hx Coronary Artery / Peripheral Vascular Disease: No Hx CHF / Valvular Disease: No Hx Palpitations: No - Pulmonary History Hx COPD: No Hx Asthma/Reactive Airway Disease: No Hx Recent Upper Respiratory Infection: No Hx Oxygen in Use at Home: No Hx Sleep Apnea: No Sleep Apnea Screening Result - Last Documented: Negative - Neurologic History Hx Cerebrovascular Accident: No Hx Seizures: No Hx Dementia: No - Endocrine History Hx Diabetes: No - Renal History Hx Renal Disorders: No Renal History Comment: KIDNEY WEAKNESS - Liver History Hx Hepatic Disorders: No - Neurological & Psychiatric Hx Hx Neurological and Psychiatric Disorders: No - Cancer History Hx Cancer: Yes Cancer History Comment: SKIN CA REMOVED. PROSTATE CA - Congenital Disorder History Hx Congenital Disorders: No - GI History Hx Gastrointestinal Disorders: No - Other Health History Other Health History: NEG - Chronic Pain History Chronic Pain: No - Surgical History Prior Surgeries: WISDOM TEETH ANE Review of Systems Review of Systems: - Exercise capacity METS (RN): 5 METS ANE Patient History - Allergies Allergies/Adverse Reactions: Penicillins Allergy (Verified 01/25/18 11:45) Other-Enter Comments - Home Medications Home medications: home medication list seen and reviewed Home Medications: Allopurinol [Allopurinol 300 MG (RX)] 300 mg PO DAILY 01/20/18 [Last Taken 10/07] Levothyroxine [Synthroid 25 mcg (*)] 25 mcg PO DAILY06 01/20/18 [Last Taken 03/19] - NPO status NPO Status: no food or drink >8 hours - Anes Hx Anes Hx: no prior problems (Local and dental only) - Smoking Hx Smoking Status: Never smoked - Family Anes Hx Family Hx Anesthesia Complications: NEG ANE Labs/Vital Signs - Vital Signs Height: 172.72 cm Weight: 66.224 kg ANE Physical Exam - Airway Neck exam: FROM Mallampati Score: Class 2 Mouth exam: normal dental/mouth exam - Pulmonary Pulmonary: no respiratory distress - Cardiovascular Cardiovascular: regular rate and rhythym - ASA Status ASA Status: II ANE Anesthesia Plan Anesthesia Plan: general endotracheal anesthesia
[2018-10-08] MEDS ORDERED: BUPIVACAINE/EPI 0.25% 30 ML SDV ONE ×2 (07:08→08:36)
[2018-10-08] MEDS ORDERED: MIDAZOLAM 2 MG/2 ML VIAL IVP ONE (07:08)
[2018-10-08] MEDS ORDERED: LIDO/EPI 1% **Not for Epidural 20 ML MDV ONE (07:08)
[2018-10-08] MEDS ORDERED: THROMBIN (BOVINE) 5,000 UNIT VIAL TP ONE (07:08)
[2018-10-08] MEDS ORDERED: BACITRACIN 50,000 UNITS/10 ML SYR IRR ONE ×2 (07:09→09:23)
[2018-10-08] MEDS ORDERED: CHLORHEXIDINE GLUCONATE 15 ML UDL ONE (07:09)
[2018-10-08] MEDS ORDERED: PROPOFOL 200 MG/20 ML VIAL ONE (07:27)
[2018-10-08] MEDS ORDERED: fentaNYL 100 MCG/2 ML INJ ONE ×2 (07:27→13:25)
[2018-10-08] MEDS ORDERED: REMIFENTANIL HCL 1 MG VIAL ONE (07:27)
[2018-10-08] MEDS ORDERED: PROPOFOL/EMULSION 500 MG/50 ML BOTTLE IV ONE (07:27)
[2018-10-08] MEDS ORDERED: ROCURONIUM 50 MG/5 ML VIAL ONE (07:27)
--- NOTE | 2018-10-08 07:28 | PDHPUP ---
History & Physical Update H&P update statement: This history and physical update is based on an assessment of the patient which was completed after admission or registration (within 24 hours), but prior to the surgery/procedure. H&P update: H&P reviewed & patient examined, no change in patient's condition since H&P completed H&P changes: none, here for laminoplasty
[2018-10-08] MEDS ORDERED: LIDOCAINE 2% 5 ML SDV ONE (07:29)
--- NOTE | 2018-10-08 08:01 | PDHPUP ---
History & Physical Update H&P update statement: This history and physical update is based on an assessment of the patient which was completed after admission or registration (within 24 hours), but prior to the surgery/procedure. H&P update: H&P reviewed & patient examined, no change in patient's condition since H&P completed (discussed procedure with patient, plan for L parathyroidectomy, possible bilateral and R submandibular gland excision. He agrees and informed consent was obtained. )
[2018-10-08] MEDS ORDERED: SURGIFLO MATRIX KIT WITH THROMBIN 8 ML TP ONE (08:36)
[2018-10-08] MEDS ORDERED: SUGAMMADEX SODIUM 200 MG/2 ML VIAL IVP ONE (09:47)
[2018-10-08] MEDS ORDERED: ONDANSETRON 4 MG/2 ML VIAL ONE (09:47)
[2018-10-08] MEDS ORDERED: DEXAMETHASONE 4 MG/ML VIAL ONE (09:47)
[2018-10-08] MEDS ORDERED: ePHEDrine SULFATE 25 MG/5 ML SYR ONE (11:03)
[2018-10-08] MEDS ORDERED: ceFAZolin 1 GM VIAL ONE (11:14)
[2018-10-08] MEDS ORDERED: BACITRACIN ZINC 0.5 OZ OINTTUBE TP ONE (13:31)
[2018-10-08] MEDS ORDERED: fentaNYL 100 MCG/2 ML INJ IVP PRN (13:55)
[2018-10-08] MEDS ORDERED: ONDANSETRON 4 MG/2 ML VIAL IVP PRN ×2 (13:55→16:28)
[2018-10-08] MEDS ORDERED: PROMETHAZINE HCL 25 MG/ML INJ IVP PRN (13:55)
[2018-10-08] MEDS ORDERED: HYDROmorphONE/DILAUDID 1 MG/ML INJ IVP PRN ×2 (13:55→16:28)
[2018-10-08] MEDS ORDERED: NALOXONE HCL 0.4 MG/ML INJ IVP PRN (13:55)
--- NOTE | 2018-10-08 14:08 | POSTOPPROG ---
Post Op Note Date of Operation: 10/08/18 Surgeon: Fariba Vásquez Public Health Program Manager: Eugenio Damon MD Anesthesiologist: MD Ciera Anesthesia: GET(General Endotracheal) Pre-op Diagnosis: hyperparathyroidism, R submax gland mass Post-op Diagnosis: same Procedure: L parathyroidectomy, R submandibular gland mass Findings: L hypercellular parathyroid, R submandibular gland mass, small, firm Inf/Abcess present in the surg proc area at time of surgery?: No EBL: 50-100 Complications: none apparent Bowel Protocol: N/A Clean Closure Performed: Yes Drains: Bishnu Fowler Specimen(s): L parathyroid, R submandibular gland
--- NOTE | 2018-10-08 14:15 | POSTANESTH ---
Post Anesthetic Evaluation Cardiovascular Status: Similar to Pre-Op Cond Respiratory Status: Similar to Pre-op Cond. Level of Consciousness/Mental Status: Alert and Oriented Pain Control: Adequate, Prn Tx Ordered Nausea/Vomiting Control: Adequate, Prn Tx Ordered Complications Possibly Related to Anesthesia: None Noted
[2018-10-08] MEDS ORDERED: diphenhydrAMINE 25 MG CAP PO PRN (16:28)
[2018-10-08] MEDS ORDERED: MAGNESIUM HYDROXIDE 30 ML UDCUP PO PRN (16:28)
[2018-10-08] MEDS ORDERED: BISACODYL 10 MG SUPP PR PRN (16:28)
[2018-10-08] MEDS ORDERED: POLYETHYLENE GLYCOL 3350 17 GM PKT PO PRN (16:28)
[2018-10-08] MEDS ORDERED: ONDANSETRON DISINTEGRATING 4 MG TAB PO PRN (16:28)
[2018-10-08] MEDS ORDERED: LACTULOSE 20 GM/30 ML UDCUP PO PRN (16:28)
[2018-10-08] MEDS ORDERED: NS 1,000 ML IV SCH (16:30)
--- NOTE | 2018-10-08 17:24 | PDMN ---
Medical Necessity Medical necessity: [facility] IP only surgery; cpt 29866 C3/7 Laminoplasty
[2018-10-08] MEDS: oxyCODONE IR 5 MG TAB PO PRN (17:55)
[2018-10-08] MEDS: ACETAMINOPHEN 500 MG TAB PO SCH ×2 (17:56→22:13)
[2018-10-08] MEDS: GABAPENTIN 300 MG CAP PO SCH ×2 (17:56→22:14)
[2018-10-08] MEDS: ceFAZolin 2 GM/DEXTROSE 100 ML IV SCH (20:49)
[2018-10-08] MEDS: BACITRACIN OINTMENT 1 PACKET TP SCH (22:13)
[2018-10-08] MEDS: SENNOSIDES/DOCUSATE SODIUM TAB PO SCH (22:14)
[2018-10-08] MEDS: FAMOTIDINE 20 MG TAB PO SCH (22:14)
[2018-10-08] MEDS: CALCIUM CARBONATE 500 MG TAB PO SCH (22:14)
[2018-10-09] MEDS: ceFAZolin 2 GM/DEXTROSE 100 ML IV SCH (03:43)
[2018-10-09] MEDS: oxyCODONE IR 5 MG TAB PO PRN (03:47)
[2018-10-09 04:46] LABS: PLATELET COUNT 101 10^3/uL (150-400)
[2018-10-09] MEDS: LEVOTHYROXINE 25 MCG TAB PO SCH (06:01)
[2018-10-09] MEDS: GABAPENTIN 300 MG CAP PO SCH ×3 (06:01→22:17)
[2018-10-09] MEDS: ACETAMINOPHEN 500 MG TAB PO SCH ×3 (06:08→22:17)
--- NOTE | 2018-10-09 10:14 | ASMTCMCOM ---
CM Note CM Note Notes: Patient chart reviewed for discharge planning purposes. Patient underwent surgery yesterday for c-spine stenosis and submandibular mass resection. CM to follow for needs. [facility] previously set up for patient. Plan: Pending PT/OT TBD. Date Signed: 10/09/2018 10:13 AM Electronically Signed By:Debbi Hilario RN
[2018-10-09] MEDS: FAMOTIDINE 20 MG TAB PO SCH ×2 (10:34→20:06)
[2018-10-09] MEDS: ALLOPURINOL 300 MG TAB PO SCH (10:35)
[2018-10-09] MEDS: SENNOSIDES/DOCUSATE SODIUM TAB PO SCH ×2 (10:35→20:06)
[2018-10-09] MEDS: BACITRACIN OINTMENT 1 PACKET TP SCH ×2 (10:36→22:20)
[2018-10-09] MEDS: CALCIUM CARBONATE 500 MG TAB PO SCH ×2 (10:36→20:06)
--- NOTE | 2018-10-09 11:13 | NEUSURGPN ---
Assessment/Plan: A: 68 yo male sp C3-7 laminoplasty and sp parathyroidectomy and submandibular mass biopsy. Doing well overall and pain is well controlled. P: Optimize pain management Likely continue INOCENCIO drain today PT/OT Soft collar prn comfort Dispo- likely tomorrow if ok with ENT Dr. Vásquez Discussed with Kiran Vásquez and Marisol S: Doing well with minimal pain complaints at this time. Denies numbness, tingling, pain in arms or legs. Good strength O: NAD, VSS CN II-XII grossly intact Alert, awake soft collar in place BUE 5/5= BLE 5/5= SILT Incisions c/d/i- dressed INOCENCIO X 1- minimal serosang in bulb Catheter Insertion Date: 10/08/18 - Physician Discussed Patient with : Marisol Neurosurgery Physical Exam - Vitals, I&O, Labs I and O 10/08/18 10/09/18 10/10/18 05:59 05:59 05:59 Intake Total 2875 Output Total 1530 Balance 1345 Weight 66.224 kg Intake: Oral (ml) 25 IV Intake (ml) 1800 IV Infused (ml) 1050 Ns 1,000 ml @ 75 mls/hr 825 IV CONT MARK Rx#: [id number] ceFAZolin 1 GM/DEXTROSE 225 50 ml @ 200 mls/hr IV Q8H MARK Rx#:[id number] Output: Urine (ml) 1350 Catheter 1350 Estimated Blood Loss (ml) 100 INOCENCIO Drain Output (ml) 80 #1 Left Posterior Neck 80 Bishnu Fowler Other: Intake Quantity Yes Sufficient Vital Signs Temp Pulse Resp BP Pulse Ox 36.4 C 77 14 101/57 L 95 10/09/18 08:00 10/09/18 08:00 10/09/18 08:00 10/09/18 08:00 10/09/18 08:00 Laboratory Results 10/09/18 04:23 10/09/18 04:23 ICD10 Worksheet Patient Problems: Problems Problem Status Onset Hypercalcemia Acute Renal insufficiency Acute Syncope Acute Ureteral stone Acute
[2018-10-09] MEDS: ENOXAPARIN 40 MG/0.4 ML SYR SC SCH (11:43)
[2018-10-09] MEDS ORDERED: HYDROGEN PEROXIDE 236 ML BOTTLE TP PRN (22:10)
--- NOTE | 2018-10-09 22:29 | SOAPPROG ---
SOAP Progress Note Assessment/Plan: Assessment: POD 1 L parathyroidectomy and R submandibular gland excision. Doing well. Voice and swallowing good, PTH/Ca stabilized. Will recheck tonight and tomorrow. Continue on Ca BID at home until f/u next week. Will remove submandibular jc drain tomorrow prior to d.c. Call if there are any questions Plan: 10/09/18 22:26 Subjective: Doing well, has some neck soreness. Jc drain putting out some d/c but minimal. taking po. Voice strong. no sig tingling or numbness in fingers or lips. Objective: Vital Signs Temp Pulse Resp BP Pulse Ox 36.8 C 83 14 92/56 L 97 10/09/18 16:27 10/09/18 16:27 10/09/18 16:27 10/09/18 16:27 10/09/18 16:27 Laboratory Results 10/09/18 04:23 10/09/18 04:23 10/08/18 10/09/18 10/10/18 05:59 05:59 05:59 Intake Total 2875 1000 Output Total 1530 1385 Balance 1345 -385 AFVSS RA sitting up in bed sutures c/d/i, jc not putting out much midline incision covered with steristrips. both sites without hematoma or seroma tongue mobile and midline, matt intact voice strong ICD10 Worksheet Patient Problems: Problems Problem Status Onset Hypercalcemia Acute Renal insufficiency Acute Syncope Acute Ureteral stone Acute
[2018-10-09] MEDS ORDERED: LIDOCAINE 2% JELLY 20 ML (UROJECT) UR ONE (23:30)
[2018-10-10] MEDS: ACETAMINOPHEN 500 MG TAB PO SCH (05:40)
[2018-10-10] MEDS: GABAPENTIN 300 MG CAP PO SCH (05:40)
[2018-10-10] MEDS: LEVOTHYROXINE 25 MCG TAB PO SCH (05:40)
[2018-10-10 07:15] VITALS: BP 121/68
[2018-10-10] MEDS: CALCIUM CARBONATE 500 MG TAB PO SCH (08:54)
[2018-10-10] MEDS: ALLOPURINOL 300 MG TAB PO SCH (08:54)
[2018-10-10] MEDS: FAMOTIDINE 20 MG TAB PO SCH (08:54)
[2018-10-10] MEDS: ENOXAPARIN 40 MG/0.4 ML SYR SC SCH (08:54)
[2018-10-10] MEDS: SENNOSIDES/DOCUSATE SODIUM TAB PO SCH (08:54)
[2018-10-10] MEDS: BACITRACIN OINTMENT 1 PACKET TP SCH (08:58)
--- NOTE | 2018-10-10 09:08 | NEUSURGPN ---
Assessment/Plan: A: 68 yo male sp C3-7 laminoplasty and sp parathyroidectomy and submandibular mass biopsy. Doing well overall and pain is well controlled. Had issues with urinary retention. Was straight cathed and now urinating better Drains removed P: Optimize pain management PT/OT Soft collar prn comfort Dispo- Home today as long as he continues to urinate without high residuals Discussed with Kiran Vásquez and Marisol S: Doing well with minimal pain complaints at this time. Denies numbness, tingling, pain in arms or legs. Good strength. Urinating better this morning O: NAD, VSS CN II-XII grossly intact Alert, awake soft collar in place BUE 5/5= BLE 5/5= SILT Incisions c/d/i- dressed Drain sites covered Catheter Insertion Date: 10/08/18 - Physician Discussed Patient with : Marisol Neurosurgery Physical Exam - Vitals, I&O, Labs I and O 10/09/18 10/10/18 10/11/18 05:59 05:59 05:59 Intake Total 2875 2050 Output Total 1530 3035 375 Balance 1345 -985 -375 Weight 66.224 kg Intake: Oral (ml) 25 2050 IV Intake (ml) 1800 IV Infused (ml) 1050 Ns 1,000 ml @ 75 mls/hr 825 IV CONT MARK Rx#: [id number] ceFAZolin 1 GM/DEXTROSE 225 50 ml @ 200 mls/hr IV Q8H MARK Rx#:[id number] Output: Urine (ml) 1350 2875 350 Catheter 1350 1300 Toilet 1150 350 Urinal 425 Estimated Blood Loss (ml) 100 INOCENCIO Drain Output (ml) 80 160 25 #1 Left Posterior Neck 80 160 25 Bishnu Fowler Other: Intake Quantity Yes Sufficient Number of Voids Catheter 1 Toilet 1 Bladder Scan Volume (ml) Catheter 630 Toilet 832 Post Void Residual Scan Volume (ml) Catheter 238 Toilet 533 Urinal 776 Vital Signs Temp Pulse Resp BP Pulse Ox 36.4 C 85 14 121/68 H 94 10/10/18 07:13 10/10/18 07:13 10/10/18 07:13 10/10/18 07:13 10/10/18 07:13 Laboratory Results 10/09/18 04:23 10/09/18 04:23 ICD10 Worksheet Patient Problems: Problems Problem Status Onset Hypercalcemia Acute Renal insufficiency Acute Syncope Acute Ureteral stone Acute
--- NOTE | 2018-10-10 10:05 | ASMTLACE ---
LACE Length of stay for Answers: 1 day current admission Acuity / Level of Answers: Yes Care: Did the patient have an inpatient admission? Comorbidities - select Answers: Any tumor (including all that apply lymphoma or leukemia) Other Notes: cervical stenosis Score: 7 Date Signed: 10/10/2018 10:05 AM Electronically Signed By:Debbi Hilario RN
--- NOTE | 2018-10-10 10:09 | ASMTDCNOTE ---
Case Management Discharge Discharge Order Complete? Answers: Yes Patient to Obtain Answers: Independently Medications Transportation Arranged Answers: Family/Friends Family Notified Answers: Yes Discharge Comments Notes: Patient medically cleared for discharge to home independently. Outpatient therapy recommended, no other needs at this time. CM available should needs arise. Date Signed: 10/10/2018 10:09 AM Electronically Signed By:Debbi Hilario RN
--- NOTE | 2018-10-13 10:38 | GOP ---
[f rep st] OPERATIVE REPORT DATE OF OPERATION: 10/08/2018 SURGEON: Fariba Vásquez MD MEDICAL DIRECTOR OCCUPATIONAL HEALTH: Dr. Eugenio Damon ANESTHESIA: General. PREOPERATIVE DIAGNOSIS: 1. Primary hyperparathyroidism. 2. Right submandibular mass. 3. Cervical spine stenosis. POSTOPERATIVE DIAGNOSIS: 1. Primary hyperparathyroidism. 2. Right submandibular mass. 3. Cervical spine stenosis. PROCEDURE PERFORMED: 1. Left parathyroidectomy. 2. Right submandibular gland excision. 3. 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 His PTH preoperatively was 190 and it dropped to the 50s, and then the 2nd PTH was 17. The submandibular gland was removed without difficulty, finding all nerves and keeping these intact. ESTIMATED BLOOD LOSS: Minimal. INDICATIONS: Mr. Tucker is a pleasant 68-year-old man who has a history of primary hyperparathyroidism with calciums in the 11s and PTH significantly high. He was seen by the instructional coach and a workup was done with findings of a left parathyroid adenoma. He was referred to me for surgical intervention. During the workup for his adenoma on an ultrasound of the neck, they evaluated the right submandibular gland and an incidental finding of a 7 mm mass was there. I discussed this with him and that based on the ultrasound findings, it looked somewhat suspicious and so the radiologist had recommended doing a CT scan. We did a CT scan of the neck with contrast, although on that scan, the mass was not easily visualized. They then recommended an MRI, which we did. The mass was also not easily visualized on the MRI, but he was noted to have severe foraminal stenosis in his cervical spine, so he was recommended to be seen by Neurosurgery. Then I talked to the radiologist about the findings on the ultrasound, MRI, and CT scan, and he was still very suspicious secondary to the findings on the ultrasound, so another ultrasound was done with plans for an FNA if they were able to see this mass in the submandibular gland. This was able to be seen and an FNA was done and a finding of oncocytes was present, no overt malignancy, but he could not tell me exactly what this was. In discussion with the patient, we decided to do a right submandibular gland excision and send this entire specimen for pathology at the same time as removing the parathyroid adenoma. He was also seen by Dr. Damon, who recommended surgery to eliminate the risk of any significant paralysis or other nerve injury during surgery. He was also given the option to observe this, but with knowledge of the risk, he elected to proceed with a laminectomy. So Dr. Damon did his portion first and then I did my portion afterward. DESCRIPTION OF PROCEDURE: The patient was first seen in the preoperative area where informed consent was obtained. He was then brought back to the operating room where Anesthesia sedated and intubated him. Dr. Damon's portion of procedure was done 1st and so he was in prone position. I came in and assisted Dr. Damon with the 2nd half of this procedure. Once he was done, the patient was turned over, placed supine, and prepped and draped in sterile fashion for the anterior neck procedures. [place] time-out protocol was performed prior to both of these procedures, and once I confirm the patient and the procedure, the NIM system was attached from the ET tube to the system and confirmed to be tracking accurately. I also attached the NIM probe to the lower lip and brow for switching over and monitoring of the marginal mandibular branch of the facial nerve during the submandibular gland excision. After he was prepped and draped in sterile fashion, about 5 cc of 1% lidocaine with 1:100,000 epinephrine was injected in the central neck in between the sternal notch and the cricoid. After this had sufficient time to act, a 2.5 cm incision was made with a 15 blade through the skin and then the subcutaneous tissue was defect added above the platysma. This was set aside. The platysma was then divided and then subplatysmal flaps were elevated superiorly and inferiorly until we had good access and visualization of the strap musculature underneath this. At this point, Weitlaner retractors were used to give us visualization. The strap musculature was divided in the midline and then retracted off the underlying thyroid gland on the left. I then started using blunt and sharp dissection to gently dissect the area of the suspected parathyroid adenoma. I did see what looked like a parathyroid adenoma in this region and so this was dissected free and it was noted to be somewhat large and this was sent off the field for frozen pathology to be evaluated. I continued my dissection and actually right underneath this area was noted to be something that looked even more suspicious for a parathyroid adenoma, so this was dissected free. The recurrent laryngeal nerve was closely associated with this adenoma and so care was taken to keep the nerves intact and under visualization at all times. Once the adenoma was completely released and removed, this was sent for frozen pathology as well, and I instructed the nurses to draw a PTH at 10 and 20 minutes post removal of the parathyroid adenoma. During this dissection, we got a call back on the 1st frozen. It did look like a hypercellular parathyroid, but was somewhat on the borderline at 86 mg. They noted that most of the bulk of the tissue that we sent was some fatty tissue and thymic slip. At this point, as we were waiting for the 2nd frozen section and the pathology, a wet Ray-Jessica was placed in the wound of the parathyroid region, and then a preoperatively drawn incision just below the mandible by 2 fingerbreadths in a skin crease in the right neck was used to make an incision about 4.5 cm. Electrocautery was used to make an incision through the skin and subcutaneous tissues, as well as the platysma. Gentle blunt dissection was used to dissect down until I was able to retract it inferiorly and then Weitlaner retractors used to give us better visualization by placing it under the under the platysma. The posterior facial vein was found and clamped, ligated, and divided. Then, I continued my dissection under this area, thereby protecting the marginal mandibular branch of the facial nerve. The fascia of the submandibular gland was released inferiorly, anteriorly, and then superiorly, as well as posteriorly. Once this was done, I had found the anterior and posterior belly of the digastric, and then the mylohyoid muscle was seen. A Green retractor was placed under the mylohyoid muscle and it was retracted anteriorly, and under this, I could visualize the lingual nerve with its associated submandibular ganglion. This was divided below the ganglion at its attachment to the submandibular gland, thereby releasing the gland. I then found the duct. This was clamped, ligated, and divided, and then as we continued our dissection, the facial artery was found. This was clamped, ligated, and divided, thereby releasing the entire submandibular gland. This was sent off the field for permanent pathology. The wound was irrigated out copiously with normal saline. The lingual nerve, as well as the hypoglossal nerve was evaluated and seen. These were both kept intact and then the marginal mandibular branch of the facial nerve was stimulating after removal of the submandibular gland. Once this had been done, a Jona drain was placed exiting the right lateral portion of the incision. The platysma and subcutaneous tissues were closed using a 3-0 Vicryl in a subcutaneous fashion, and then the skin was closed using a 5-0 nylon in a running fashion. The [place] drain was then sutured to the skin using a 5-0 nylon. Once this was done, we had gotten back the pathology and the lab on the parathyroid. The pathology showed hypercellular parathyroid adenoma, and then the PTH came back at 56 and then the 2nd PTH was 17. At this point, this was noted to be the offending parathyroid adenoma and so after closure of the submandibular gland incision, I went back down and irrigated out the wound of the parathyroid adenoma. A small piece of Surgicel was placed in the tracheoesophageal groove, and then the strap musculature was closed using 3-0 Vicryl in interrupted fashion and then the platysma and subcutaneous tissues were closed with the same type of suturing fashion and then the skin was closed using a 5-0 Monocryl in a running subcuticular fashion. Once this was done, the wound was cleaned, dried, and then Mastisol and Steri-Strips were placed over the incision. The recurrent laryngeal nerve stimulated pre and postoperatively, as well as the marginal mandibular branch of the facial nerve did as well. At this point, the patient was turned back over to Anesthesia, where he was awoken and extubated and taken to PACU in stable condition. There were no complications. He tolerated the procedure well. Dr. Damon's portion of the procedure will be dictated separately. COMPLICATIONS: None. /[id number]/MODL MTDD
--- NOTE | 2018-10-21 22:31 | GOP ---
[f rep st] OPERATIVE REPORT DATE OF OPERATION: 10/08/2018 SURGEON: Rocco Damon MD ANESTHESIA: GETA. PREOPERATIVE DIAGNOSIS: Severe C3-7 stenosis with concerns for early myelopathy and concerns for spi nal cord injury with upcoming and planned ear, nose and throat surgery, which will require extensive neck extension. POSTOPERATIVE DIAGNOSIS: Severe C3-7 stenosis with concerns for early myelopathy and concerns for sp inal cord injury with upcoming and planned ear, nose and throat surgery, which will require extensive neck extension. PROCEDURE PERFORMED: C3-C7 laminoplasty with use of laminoplasty plates. X-rays, less 1 hour physic omer time and neuro monitoring. FINDINGS: Successful surgery. SPECIMENS: None. ESTIMATED BLOOD LOSS: Less than 100 cc. INDICATIONS: The patient is a 68-year-old male, Dr. Vásquez referred him to me for severe cervical s tenosis. He has concerns for parahypothyroidism and also a mass in the submandibular gland which she needs to biopsy. He has severe cervical stenosis and we have both discussed this with him on multip le occasions. Ultimately, he decided that he would like his stenosis corrected before he undergoes h er procedure, which will include significant neck extension. This may also help him long-term with r espect to reducing his risk of an acute spinal cord injury. After much deliberation with him and his , they agreed to proceed and informed consent was signed prior to the procedure. DESCRIPTION OF PROCEDURE: The patient was brought to the operating room and a sign-in was performed with Dr. Vásquez and I present. Anesthesia was informed of his severe cervical stenosis and they per formed an appropriate intubation without difficulty. Frank catheter was placed. IVs were placed. N euromonitoring electrodes were placed and baseline signals were obtained prior to the flip. SCDs wer e placed to prevent DVT. He was placed in a three-point [employer] and turned onto an open Bishnu table and properly padded. His neck was washed with chlorhexidine shampoo and rubbing alcoh ol which was allowed to dry prior to the procedure. A time-out was performed. ChloraPrep was used t o sterilize the skin. A sterile field was created with blue towels, Ioban, and a sterile surgical dr bonilla. Local anesthetic was injected along the midline of the posterior cervical spine. Fluoro was br ought sterilely into the field and we identified our levels from C3 to C7. A #10 scalpel was used to incise the skin. Bovie electrocautery was used to dissect down to the spinous processes and laminae bilaterally. We reconfirmed our level to ensure we were in the proper location. A high-speed drill with a match stick bur was used to complete a trough on the right side of the patient. We performed a half trough on the left side and we were then able to crack the lamina open and provide the spinal cord more room. We used our plates to tent the lamina up off the spinal cord and this was performed without difficulty. We did this at C4, C5 and C6. 7 mm screws were placed both on the lamina and l ateral mass at both C4, C5 and C6 to keep the lamina tented upward. The Flipiture system was used. Hemostasis was obtained and copious antibiotic solution was used to irrigate out the incision. A #7 flat INOCENCIO was placed to full bulb suction. We closed the fascia with 0 Vicryl suture, injected 0.5% pl ain Marcaine into the soft tissues and paraspinal musculature for postoperative pain control. We nicole sed the dermis with inverted 2-0 pop-off Vicryl suture. We cleaned the skin with a wet and dry spong e. We applied Dermabond to the incision and let it dry and placed Telfa and Tegaderm as a dressing. The patient was taken out of the global head [employer] and returned to a supine position. All counts were cor rect for this portion of procedure. I was there for the entirety of the procedure. Neuromonitoring was stable for the entirety of the procedure; in fact, slightly improved. He was then placed supine on a regular operating table and Dr. Vásquez took over with her portion of procedure. Please refer t o her operative report for those details. I did assist her with this procedure and she was grateful. Postoperatively, the patient was in stable neurological and medical condition. I updated his with the details of my procedure specifically and Dr. Vásquez updated her with her details of the pro cedure. He was sent to the postoperative Ortho Spine Floor for postoperative care. CO-SURGEON: Fariba Vásquez MD. DRAINS: #7 flat INOCENCIO to full bulb suction. COMPLICATIONS: None. /[id number]/MODL
== END 2018-10-10 11:57 | disposition home or self-care (01) | DRG 626 ==
LOC: F3N 06:15 → OBSVTOIN 16:29
PROVIDERS: ADMIT Neurological Surgery; ATTEND Neurological Surgery
PROC: 0CBJ0ZX Excision of Minor Salivary Gland, Open Approach, Diagnostic (ICD-10-PCS; principal; 2018-10-08 07:30)
PROC: 0GBR0ZX Excision of Parathyroid Gland, Open Approach, Diagnostic (ICD-10-PCS; principal; 2018-10-08 07:30)
PROC: 4A1004G Monitoring of Central Nervous Electrical Activity, Intraoperative, Open Approach (ICD-10-PCS; principal; 2018-10-08 07:30)
PROC: 00NW0ZZ Release Cervical Spinal Cord, Open Approach (ICD-10-PCS; principal; 2018-10-08 07:30)
DX: E21.0 Primary hyperparathyroidism (principal); M50.01 Cervical disc disorder with myelopathy, high cervical region; M50.021 Cervical disc disorder at C4-C5 level with myelopathy; M50.022 Cervical disc disorder at C5-C6 level with myelopathy; M50.023 Cervical disc disorder at C6-C7 level with myelopathy; M48.02 Spinal stenosis, cervical region; D35.1 Benign neoplasm of parathyroid gland; K11.23 Chronic sialoadenitis
CPT/HCPCS: 97116-GP; 97161-GP; 97165-GO; 97530-GP; C1713; J0690; J1100; J1650; J2250; J2405; J2704; J3010

== ENCOUNTER → 2018-11-17 | Outpatient (CLI) | payer OTHER | LOC: FIMAGING 13:04 ==